=== PATIENT | female | born 1975 | race Two or more races ===

== ENCOUNTER 2022-08-02 22:42 | Emergency (ER) | payer MEDICAID ==
[~2022-08-02] VITALS: Ht 154.9 cm; Wt 81.8 kg
[2022-08-03 04:02] LABS: Basophils # (auto) 0.1 10 ^3/uL (0-0.2); Eosinophils # (auto) 0.2 10 ^3/uL (0-0.8); Hemoglobin 8.2 g/dL (12.2-16.2); Lymphocytes # (auto) 3.5 10 ^3/uL (0.4-5.4); Neutrophils # (auto) 8.9 10 ^3/uL (1.6-8.6); Red Cell Distribution Width 18.8 % (11.8-14.3); White Blood Cell 13.6 10^3/uL (4.4-10.8)
[2022-08-03 04:07] LABS: Basophils % (auto) 0.9 % (0.0-2.0); Eosinophils % (auto) 1.6 % (0.0-7.0); Hematocrit 28.4 % (36.0-46.0); Lymphocytes % (auto) 25.6 % (10.0-50.0); Mean Corpuscular Hgb Conc. 28.8 g/dL (32.0-36.0); Monocytes # (auto) 0.9 10 ^3/uL (0-1.3); Monocytes % (auto) 6.5 % (0.0-12.0); Neutrophils % (auto) 65.4 % (37.0-80.0)
[2022-08-03 04:33] LABS: Albumin 3.8 g/dL (3.4-5.0); Calcium 9.1 mg/dL (8.5-10.1)
[2022-08-03 04:43] LABS: BUN/Creatinine Ratio 16.7; Bilirubin, Total 0.3 mg/dL (0.2-1.0); Total Protein 8.5 g/dL (6.4-8.2)
[2022-08-03 07:56] LABS: Urine Specific Gravity 1.022 (1.001-1.035)
[2022-08-03 07:57] LABS: Urine Blood Normal /uL (Negative)
[2022-08-03 12:18] VITALS: BP 105/79
== END 2022-08-03 14:51 | disposition home or self-care (01) ==
LOC: ER 22:42
DX: D64.9 Anemia, unspecified (principal); D25.9 Leiomyoma of uterus, unspecified; N93.8 Other specified abnormal uterine and vaginal bleeding
CPT/HCPCS: 36415; 76830; 76856; 80053; 81003; 84702; 85025; 93005